=== PATIENT | female | born 1995 | race Two or more races ===

== ENCOUNTER 2020-09-14 15:25 | Inpatient (IN) | payer MEDICAID, OTHER ==
[~2020-09-14] VITALS: Ht 157.5 cm; Wt 96.6 kg
[2020-09-14 16:45] LABS: Urine Bacteria NONE SEEN /hpf (None Seen); Urine Blood TRACE /uL (Negative); Urine Specific Gravity 1.022 (1.001-1.035); Urine WBC 1 /hpf (0 - 5)
[2020-09-14 19:14] LABS: Basophils # (auto) 0.1 10 ^3/uL (0-0.2); Basophils % (auto) 0.3 % (0.0-2.0); Eosinophils # (auto) 0.3 10 ^3/uL (0-0.8); Eosinophils % (auto) 1.3 % (0.0-7.0); Hematocrit 45.4 % (36.0-46.0); Lymphocytes # (auto) 4.4 10 ^3/uL (0.4-5.4); Lymphocytes % (auto) 21.4 % (10.0-50.0); Mean Corpuscular Hgb Conc. 32.9 g/dL (32.0-36.0); Mean Corpuscular Volume 85.2 fL (80.0-100.0); Monocytes # (auto) 1.3 10 ^3/uL (0-1.3); Monocytes % (auto) 6.1 % (0.0-12.0); Neutrophils # (auto) 14.6 10 ^3/uL (1.6-8.6); Neutrophils % (auto) 70.9 % (37.0-80.0); Nucleated Red Blood Cells % 0.1 %; Platelet Count (auto) 304 10^3/uL (140-450); Red Blood Cells 5.34 10^6/uL (4.0-5.20); Red Cell Distribution Width 14.6 % (11.8-14.3); White Blood Cell 20.7 10^3/uL (4.4-10.8)
[2020-09-14 19:32] LABS: BUN/Creatinine Ratio 12.1; Potassium 3.6 mmol/L (3.5-5.1)
[2020-09-14 19:34] LABS: Bilirubin, Total 0.7 mg/dL (0.2-1.0); Total Protein 8.2 g/dL (6.4-8.2)
[2020-09-14] MEDS ORDERED: SODIUM CHLORIDE 0.9% 1,000 ML IV ONE ×2 (20:45→21:15)
[2020-09-14] MEDS ORDERED: ONDANSETRON ODT 4 MG TAB PO ONE (20:45)
[2020-09-14] MEDS ORDERED: ACETAMINOPHEN/CODEINE#3 (300/30mg) TAB PO ONE (20:45)
[2020-09-14] MEDS ORDERED: metroNIDAZOLE 500MG/100ML 100 ML IV ONE (21:15)
[2020-09-14] MEDS ORDERED: cefTRIAXone 1GM/50ML D5W 50 ML IV ONE (21:15)
[2020-09-14] MEDS ORDERED: MORPHINE SULF INJ 2 MG/ML SYRINGE 1ML IV ONE (21:15)
[2020-09-14] MEDS ORDERED: MORPHINE SULFATE 4 MG/ML SYR/VIAL IV ONE (21:45)
[2020-09-14 21:52] LABS: INR 0.92 (0.9-1.15); Partial Thromboplastin Time 28.9 sec (23.0-31.2)
[2020-09-14] MEDS ORDERED: SODIUM CHLORIDE 0.9% 1,000 ML IV SCH (22:00)
[2020-09-15] VITALS (8 sets, daily range): BP systolic 111–149; BP diastolic 17–78
[2020-09-15] MEDS: metroNIDAZOLE 500MG/100ML 100 ML IV SCH ×4 (01:21→21:20)
--- NOTE | 2020-09-15 01:37 | NUR ---
MS admit from [facility] admitted to tele/MS. Patient oriented to Annie Ahumada RN primary RN, unit, room, bed, and unit policies regarding patient care and visiting hours. Patient weighed by bedscale and encouraged to call if they need something. All questions and concerns addressed, patient verbalized understanding. Fall and safety precautions in place. Call light within reach. Urine sample collected and walked to lab per MD order
[2020-09-15 02:15] LABS: Amphetamine Screen, Urine NEGATIVE (NEGATIVE); Barbiturate Scree,Urine NEGATIVE (NEGATIVE); Benzodiazephine Screen, Urine NEGATIVE (NEGATIVE); Cannabinoid Screen, Urine NEGATIVE (NEGATIVE); Cocaine Screen, Urine NEGATIVE (NEGATIVE); Opiate Scree,Urine POSITIVE (NEGATIVE); Phencyclidine Screen, Urine NEGATIVE (NEGATIVE)
[2020-09-15] MEDS ORDERED: METF-370 PO (02:20)
[2020-09-15] MEDS: MORPHINE SULF INJ 2 MG/ML SYRINGE 1ML IV PRN ×2 (04:31→20:08)
[2020-09-15] MEDS: PANTOPRAZOLE 40 MG/10 ML VIAL INJ IV SCH (08:07)
[2020-09-15] MEDS: ONDANSETRON HCL 4 MG/2 ML VIAL IV PRN ×2 (08:08→20:08)
[2020-09-15 08:37] LABS: Basophils # (auto) 0.1 10 ^3/uL (0-0.2); Basophils % (auto) 0.4 % (0.0-2.0); Eosinophils # (auto) 0.1 10 ^3/uL (0-0.8); Eosinophils % (auto) 0.7 % (0.0-7.0); Hematocrit 44.6 % (36.0-46.0); Hemoglobin 14.4 g/dL (12.2-16.2); Lymphocytes # (auto) 2.4 10 ^3/uL (0.4-5.4); Lymphocytes % (auto) 19.3 % (10.0-50.0); Mean Corpuscular Hemoglobin 27.5 pg (28.0-32.0); Mean Corpuscular Hgb Conc. 32.2 g/dL (32.0-36.0); Mean Corpuscular Volume 85.3 fL (80.0-100.0); Monocytes # (auto) 0.7 10 ^3/uL (0-1.3); Monocytes % (auto) 5.5 % (0.0-12.0); Neutrophils # (auto) 9.3 10 ^3/uL (1.6-8.6); Neutrophils % (auto) 74.1 % (37.0-80.0); Platelet Count (auto) 273 10^3/uL (140-450); Red Blood Cells 5.23 10^6/uL (4.0-5.20); Red Cell Distribution Width 14.5 % (11.8-14.3); White Blood Cell 12.6 10^3/uL (4.4-10.8)
[2020-09-15 08:52] LABS: Potassium 4.1 mmol/L (3.5-5.1)
[2020-09-15 09:02] LABS: Albumin 3.4 g/dL (3.4-5.0); BUN/Creatinine Ratio 9.1; Bilirubin, Total 1.3 mg/dL (0.2-1.0); Calcium 8.6 mg/dL (8.5-10.1); Total Protein 7.2 g/dL (6.4-8.2)
--- NOTE | 2020-09-15 10:09 | NUR ---
Dr Salmon bedside with patient discussing plan of care. Orders received and carried out.
[2020-09-15] MEDS ORDERED: DEXTROSE (50%) 50ML SYRG IV PRN (10:30)
--- NOTE | 2020-09-15 10:30 | NUR ---
Niya Felton swab walked to lab
--- NOTE | 2020-09-15 11:08 | NUR ---
Received call from Dr Kris May for consents to be printed for procedure.
--- NOTE | 2020-09-15 11:09 | NUR ---
Nutrition Consult Food and Drug interaction Pt is prescribed Metronidazole. Spoke to pt about the interaction between antibiotics and alcohol. Advised pt to avoid consumption of medication with alcohol intake if prescribed outside of hospital. Placed food and drug interaction sheet in pt discharge folder.
[2020-09-15] MEDS ORDERED: fentaNYL CITRATE 100 MCG/2 ML VL ONE (11:58)
[2020-09-15] MEDS ORDERED: MIDAZOLAM HCL 1MG/1ML-2 ML VIAL ONE (11:58)
[2020-09-15] MEDS ORDERED: MEPERIDINE HCL (25 MG/ML) 1ML VIAL ONE (11:58)
[2020-09-15] MEDS ORDERED: GLYCOPYRROLATE 0.2 MG/ML 1ML VIAL ONE (11:59)
[2020-09-15] MEDS ORDERED: ROCURONIUM 10MG/ML 10ML VIAL IV ONE (11:59)
[2020-09-15] MEDS ORDERED: SODIUM CHLORIDE LOCK 10 ML ONE (11:59)
[2020-09-15] MEDS ORDERED: NEOSTIGMINE 1 MG/ML INJ (10mg/10ML VIAL) ONE (11:59)
[2020-09-15] MEDS ORDERED: MEPERIDINE HCL (50 MG/ML) 1 ML VIAL ONE (11:59)
[2020-09-15] MEDS ORDERED: ONDANSETRON HCL 4 MG/2 ML VIAL ONE (11:59)
[2020-09-15] MEDS: InsuLIN REG 1unit/0.01ml Soln (100units/ml) SC SCH ×3 (12:00→23:43)
[2020-09-15] MEDS: SODIUM CHLORIDE 0.9% 1,000 ML IV SCH ×3 (12:01→23:43)
[2020-09-15] MEDS: ACCU-CHEK COMFORT CURVE STRIP VI SCH ×3 (12:02→23:43)
[2020-09-15] MEDS ORDERED: BUPIVACAINE 0.25% INJ 50ML VIAL ONE (13:30)
--- NOTE | 2020-09-15 13:35 | NUR ---
Patient off floor for procedure
[2020-09-15] MEDS ORDERED: cefTRIAXone 1GM/50ML D5W 50 ML IV ONE (13:36)
[2020-09-15] MEDS ORDERED: HYDROmorphone HCL 2 MG/ML VL IV ONE (16:03)
[2020-09-15] MEDS ORDERED: HYDROmorphone HCL 2 MG/ML VL ONE (16:03)
--- NOTE | 2020-09-15 16:22 | NUR ---
Patient back to room from procedure. Patient placed on 2L NC, 3 incisions clean/dry/intact with abdominal binder in place. VS: 98.5, 87, 14, 93% 126/77. No complaints of pain at this time. Will continue to monitor.
--- NOTE | 2020-09-15 19:30 | NUR ---
Opening Shift Note Assumed care of patient, awake and alert. No S/S of distress/SOB or pain. Insructed on POC and to callfor assist PRN, will continue to monitor for changes Q1hr and PRN. Fall and safety precautions in place. Call light within reach
[2020-09-15] MEDS ORDERED: cefTRIAXone 1GM/50ML D5W 50 ML IV SCH (21:00)
[2020-09-16] MEDS: ONDANSETRON HCL 4 MG/2 ML VIAL IV PRN (01:50)
[2020-09-16] MEDS: MORPHINE SULF INJ 2 MG/ML SYRINGE 1ML IV PRN ×2 (01:50→09:04)
[2020-09-16 05:00] VITALS: BP 120/72
[2020-09-16] MEDS: metroNIDAZOLE 500MG/100ML 100 ML IV SCH (05:34)
[2020-09-16] MEDS: InsuLIN REG 1unit/0.01ml Soln (100units/ml) SC SCH ×2 (06:00→11:38)
[2020-09-16] MEDS: ACCU-CHEK COMFORT CURVE STRIP VI SCH ×2 (06:01→12:00)
[2020-09-16] MEDS: SODIUM CHLORIDE 0.9% 1,000 ML IV SCH ×2 (06:05→10:38)
--- NOTE | 2020-09-16 07:30 | NUR ---
Opening Shift Note Assumed care of patient, AOx4. No S/S of distress/SOB or pain. Instructed on POC and to call for assist PRN, will continue to monitor for changes. Fall and safety precautions in place, call light within reach.
[2020-09-16 09:00] VITALS: BP 114/71
[2020-09-16] MEDS: PANTOPRAZOLE 40 MG/10 ML VIAL INJ IV SCH (09:04)
--- NOTE | 2020-09-16 09:40 | NUR ---
Doctor at bedside Dr. Salmon at bedside, updated on POC. New orders received will carry out.
[2020-09-16 11:45] VITALS: BP 114/71
[2020-09-16 13:00] VITALS: BP 116/73
--- NOTE | 2020-09-16 13:15 | NUR ---
Discharge instructions given as ordered. Encourage to follow up with PMD as instructed. All questions and concerns addressed. Patient verbalized understanding. Medication reconciliation form completed and copy given to patient. IV removed with catheter intact, pressure dressing applied. Patient taken to vehicle via wheelchair with all personal belongings, accompanied by staff. No distress noted at time of departure.
== END 2020-09-16 13:15 | disposition home or self-care (01) | DRG 233 ==
LOC: ER 15:25 → OVERFLOW 15:26 → CENTRAL 09-15 01:41
PROVIDERS: ADMIT Nurse Practitioner; ATTEND Internal Medicine
PROC: 0DTJ4ZZ Resection of Appendix, Percutaneous Endoscopic Approach (ICD-10-PCS; principal; 2020-09-15 13:59)
DX: K35.33 Acute appendicitis with perforation, localized peritonitis, and gangrene, with abscess (principal); E66.01 Morbid (severe) obesity due to excess calories; D72.829 Elevated white blood cell count, unspecified; Z68.39 Body mass index [BMI] 39.0-39.9, adult; E11.65 Type 2 diabetes mellitus with hyperglycemia; E28.2 Polycystic ovarian syndrome; R16.0 Hepatomegaly, not elsewhere classified; K76.0 Fatty (change of) liver, not elsewhere classified; Z90.49 Acquired absence of other specified parts of digestive tract; Z20.828 Contact with and (suspected) exposure to other viral communicable diseases; R74.01 Elevation of levels of liver transaminase levels
CPT/HCPCS: 36415; 71045; 74176; 80053; 80307; 81001; 81025; 82962; 83605; 84702; 85025; 85610; 85730; 86850; 86900; 86901; 87426; 93005; 96365; 96375; C9113; G0378; J0696; J2250; J2405; J3490; Q0162

== ENCOUNTER 2022-02-07 11:47 | Emergency (ER) | payer MEDICAID ==
[~2022-02-07] VITALS: Ht 157.5 cm; Wt 94.3 kg
[~2022-02-07 11:47] MED LIST: METF-370 PO
[2022-02-07 14:07] LABS: Basophils # (auto) 0 10 ^3/uL (0-0.2); Basophils % (auto) 0.2 % (0.0-2.0); Eosinophils # (auto) 0 10 ^3/uL (0-0.8); Hematocrit 38.6 % (36.0-46.0); Hemoglobin 12.2 g/dL (12.2-16.2); Lymphocytes # (auto) 1.5 10 ^3/uL (0.4-5.4); Lymphocytes % (auto) 11.6 % (10.0-50.0); Mean Corpuscular Hemoglobin 22.2 pg (28.0-32.0); Mean Corpuscular Hgb Conc. 31.7 g/dL (32.0-36.0); Monocytes # (auto) 0.4 10 ^3/uL (0-1.3); Monocytes % (auto) 3.4 % (0.0-12.0); Neutrophils # (auto) 10.8 10 ^3/uL (1.6-8.6); Neutrophils % (auto) 84.8 % (37.0-80.0); Nucleated Red Blood Cells % 0.1 %; Red Blood Cells 5.51 10^6/uL (4.0-5.20); Red Cell Distribution Width 16.7 % (11.8-14.3); White Blood Cell 12.7 10^3/uL (4.4-10.8)
[2022-02-07 14:41] LABS: Albumin 3.9 g/dL (3.4-5.0); Calcium 8.9 mg/dL (8.5-10.1); Potassium 4.2 mmol/L (3.5-5.1)
[2022-02-07 14:45] LABS: BUN/Creatinine Ratio 11.4; Bilirubin, Total 0.6 mg/dL (0.2-1.0); Total Protein 8.4 g/dL (6.4-8.2)
[2022-02-07 17:02] LABS: Urine Bacteria MOD /hpf (None Seen); Urine Blood 1+ /uL (Negative); Urine Mucus FEW (None Seen); Urine Specific Gravity 1.024 (1.001-1.035); Urine WBC 8 /hpf (0 - 5)
[2022-02-07] MEDS ORDERED: LEVO500T31 PO (18:35)
[2022-02-07 18:36] VITALS: BP 138/81
[2022-02-07] MEDS: levoFLOXacin 500 MG TAB PO ONE (19:00)
== END 2022-02-07 19:29 | disposition home or self-care (01) ==
LOC: ER 11:47
DX: I88.0 Nonspecific mesenteric lymphadenitis (principal); N39.0 Urinary tract infection, site not specified; E11.9 Type 2 diabetes mellitus without complications; Z90.49 Acquired absence of other specified parts of digestive tract
CPT/HCPCS: 36415; 74176; 80053; 81001; 84702; 85025

== ENCOUNTER 2025-10-09 08:36 | Emergency (ER) | payer MEDICAID ==
[~2025-10-09] VITALS: Ht 157.5 cm; Wt 89.3 kg
[~2025-10-09 08:36] MED LIST changes: +LEVO500T31 PO
--- NOTE | 2025-10-09 09:15 | ED.PDOC ---
General HPI Comments 30 year-old female presents to the ED with a chief complaint of UTI symptoms for X1 week. Patient reports having a hormonal IUD in place as of 08/31/25. Patient states she went to Urgent Care on 10/01/25 for symptoms, and was sent home with antibiotics to treat the UTI. Patient states the antibiotics did not help, so she went to [facility]. Patient reports being admitted to [facility], discharged home 10/06/25 with Tylenol, Baclofen, and Ibuprofen, with no relief. Patient states she was told that the UTI is possibly caused by the IUD in place. Patient presents to the ED today with worsening symptoms, including bilateral flank pain and lower back pain. Patient has no further complaints at this time and otherwise denies symptoms of weakness, fatigue, fever, chills, or hematuria. Chief Complaint: Pelvic Pain Time Seen by MD: 08:54 Primary Care Provider: Favian FUENTES Reviewed notes: Medications, Allergies Allergies: Coded Allergies: Acetaminophen (Verified Allergy, Unknown, 10/09/25) Hydrocodone (Verified Allergy, Unknown, 10/09/25) Metformin (Verified Allergy, Unknown, 10/09/25) Morphine (Verified Allergy, Unknown, 10/09/25) Tramadol (Verified Allergy, Unknown, 10/09/25) Home Meds Active Scripts Levofloxacin (Levaquin) 500 Mg Tab, 500 MG PO BID for 7 Days, #14 TAB Prov:FERDINAND LAM MD 02/07/22 Reported Medications Metformin Hydrochloride (Metformin Hcl) 500 Mg Tab, 500 MG PO IBID for 30 Days, MG 09/15/20 Information Source: Patient Mode of Arrival: Ambulatory Severity: Moderate Timing: Days Duration: Since onset History of: UTI Location: (R) Flank, (L)Flank associated signs and symptoms: Flank Pain, Back Pain, Dysuria Past Medical History PAST MEDICAL HISTORY: DM Past Medical History (Other): PCOS, R Lung nodule Surgical History: Appendectomy, Cholecystectomy Surgical History (Other): [employer] History: Other (IUD Insertion ) Family History Family History: Reviewed,noncontributory to illness Social History Smoker: Non-Smoker Alcohol: Denies ETOH Use Drugs: Denies Drug Use Lives In: Home Constitutional: denies: chills, diaphoresis, fatigue, fever, malaise, sweats, weakness, others EENTM: denies: blurred vision, double vision, ear bleeding, ear discharge, ear drainage, ear pain, ear ringing, eye pain, eye redness, hearing loss, mouth pain, mouth swelling, nasal discharge, nose bleeding, nose congestion, nose pain, photophobia, tearing, throat pain, throat swelling, voice changes, others Respiratory: denies: cough, hemoptysis, orthopnea, SOB at rest, shortness of breath, SOB with excertion, stridor, wheezing, others Cardiovascular: denies: chest pain, dizzy spells, diaphoresis, Dyspnea on exertion, edema, irregular heart beat, left arm pain, lightheadedness, palpitations, PND, syncope, others Gastrointestinal: denies: abdomen distended, abdominal pain, blood streaked bowels, constipated, diarrhea, dysphagia, difficulty swallowing, hematemesis, melena, nausea, poor appetite, poor fluid intake, rectal bleeding, rectal pain, vomiting, others Genitourinary: reports: dysuria, flank pain; denies: abnormal vagina bleeding, burning, dyspareunia, frequency, hematuria, incontinence, pain, , vagina discharge, urgency, others Neurological: denies: dizziness, fainting, headache, left sided numbness, left sided weakness, numbness, paresthesia, pre-existing deficit, right sided numbness, right sided weakness, seizure, speech problems, tingling, tremors, weakness, others Musculoskeletal: denies: back pain, gout, joint pain, joint swelling, muscle pain, muscle stiffness, neck pain, others Integumetry: denies: bruises, change in color, change in hair/nails, dryness, laceration, lesions, lumps, rash, wounds, others Allergic/Immunocompromised: denies: Difficulty Healing, Frequent Infections, Hives, Itching, others Hematologic/Lymphatic: denies: anemia, blood clots, easy bleeding, easy bruising, swollen glands, others Endocrine: denies: excessive hunger, excessive sweating, excessive thirst, excessive urination, flushing, intolerance to cold, intolerance to heat, unexplained weight gain, unexplained weight loss, others Psychiatric: denies: anxiety, bipolar disorder, depression, hopeless, panic disorder, schizophrenia, sleepless, suicidal, others All Other Systems: Reviewed and Negative Physical Exam General Appearance: Moderate Distress, Obese HEENT: Normal ENT Inspection, Pharynx Normal, TMs Normal Neck: Full Range of Motion, Non-Tender, Normal, Normal Inspection Respiratory: Chest Non-Tender, No Respiratory Distress, Normal Breath Sounds Cardiovascular: No Edema, No JVD, No Murmur, No Gallop, Regular Rate/Rhythm Breast Exam: Deferred Gastrointestinal: No Organomegaly, Non Tender, No Pulsatile Mass, Normal Bowel Sounds, Soft Genitalia: Deferred Pelvic: Deferred Rectal: Deferred Extremities: Normal capillary refill, Normal inspection, Normal range of motion, Non-tender, No pedal edema Musculoskeletal : Apperance: Normal Neurologic: Alert, No Motor Deficits, Normal Affect, Normal Mood, No Sensory Deficits Cerebellar Function: NOT DONE Reflexes: NOT DONE Skin: Dry, Normal Color, Warm Lymphatic: No Adenopathy Was a procedure done? Was a procedure done?: No Differential Diagnosis Kidney stone (Female): N/A Urinary Problem (Female): Urolithiasis, UTI X-Ray, Labs, Meds, VS Vital Signs Date Time Temp Pulse Resp B/P (MAP) Pulse Ox O2 Delivery O2 Flow Rate FiO2 10/09/25 08:41 98.2 96 14 132/95 98 98.2 Lab Test 10/09/25 09:34 10/09/25 08:58 Range/Units White Blood Count 5.0 4.4-10.8 10^3/uL Red Blood Count 5.38 H 4.0-5.20 10^6/uL Hemoglobin 14.1 12.2-16.2 g/dL Hematocrit 42.4 36.0-46.0 % Mean Corpuscular Volume 78.9 L 80.0-100.0 fL Mean Corpuscular Hemoglobin 26.2 L 28.0-32.0 pg Mean Corpuscular Hemoglobin Concent 33.2 32.0-36.0 g/dL Red Cell Distribution Width 16.3 H 11.8-14.3 % Platelet Count 201 140-450 10^3/uL Mean Platelet Volume 8.0 6.9-10.8 fL Neutrophils (%) (Auto) 61.1 37.0-80.0 % Lymphocytes (%) (Auto) 23.1 10.0-50.0 % Monocytes (%) (Auto) 9.1 0.0-12.0 % Eosinophils (%) (Auto) 6.2 0.0-7.0 % Basophils (%) (Auto) 0.5 0.0-2.0 % Neutrophils # (Auto) 3.0 1.6-8.6 10 ^3/uL Lymphocytes # (Auto) 1.2 0.4-5.4 10 ^3/uL Monocytes # (Auto) 0.5 0-1.3 10 ^3/uL Eosinophils # (Auto) 0.3 0-0.8 10 ^3/uL Basophils # (Auto) 0 0-0.2 10 ^3/uL Nucleated Red Blood Cells 0.2 % Sodium Level 138 136-145 mmol/L Potassium Level 4.1 3.5-5.1 mmol/L Chloride Level 102 98-107 mmol/L Carbon Dioxide Level 23 20-31 mmol/L Anion Gap 13 5-15 Blood Urea Nitrogen < 5 L 9-23 mg/dL Creatinine 0.74 0.550-1.02 mg/dL Glomerular Filtration Rate Calc 112 >90 mL/min BUN/Creatinine Ratio 6.8 L 10.0-20.0 Serum Glucose 265 H 74-106 mg/dL Calcium Level 9.4 8.7-10.4 mg/dL Urine Color Colorless Yellow Urine Clarity Clear Clear Urine pH 7.0 5.0-9.0 Urine Specific [place] 1.017 1.001-1.035 Urine Protein Negative Negative Urine Ketones 1+ H Negative Urine Blood Trace H Negative /uL Urine Nitrite Negative Negative Urine Bilirubin Negative Negative Urine Urobilinogen Normal Negative mg/dL Urine Leukocyte Esterase Negative Negative /uL Urine RBC 3 0 - 4 /hpf Urine Microscopic WBC < 1 0-5 /HPF Urine Squamous Epithelial Cells Few <5 /hpf Urine Bacteria Few H None Seen /hpf Urine Glucose 4+ H Normal mg/dL Urine Test Negative Negative Time of 1ST Reevaluation: 12:05 Reevaluation 1ST: Unchanged Patient Education/Counseling: Diagnosis, Treatment Family Education/Counseling: No Family Present SEPSIS Sepsis Screen Date sepsis recognized/suspect: Oct 09, 2025 Time Sepsis recognized/suspect: 843 Recent Procedure: No On Antibiotic Therapy: No Respiratory Rate >20: No Heart Rate >90: Yes Temp<36 C (96.8 F) or >38.3 C: No SBP <90 or MAP <65 mmHG: No New Acute Mental Status Change: No Is the patient on CPAP, BIPAP,: No Physician Orders Pelvic (10/09/25 10:20) Transvaginal Us Non Ob (10/09/25 11:27) Vital Signs Date Time Temp Pulse Resp B/P (MAP) Pulse Ox O2 Delivery O2 Flow Rate FiO2 10/09/25 08:41 98.2 96 14 132/95 98 98.2 Laboratory Tests Test 10/09/25 09:34 White Blood Count 5.0 10^3/uL (4.4-10.8) Departure 1 Departure Time of Disposition: 12:01 (Patient's workup appears benign. Patient has a follow up with the her OB tomorrow and would like to go. We will discharge patient home) Impression: Primary Impression: Pelvic pain Disposition: 01 HOME / SELF CARE / HOMELESS Condition: Stable Additional Instructions: Your workup today was benign. Your IUD appears to be in a good place on your ultrasound today. You should follow up with your OB tomorrow. Discharged With: Self Critical Care Note Critical Care Time?: No Stability Stability form required: No Heart Score Heart Score: Heart Score Response (Comments) Value History N/A 0 EKG N/A 0 Age N/A 0 Risk Factors N/A 0 Troponin N/A 0 Total 0 I personally scribed for ALMA ROSADO MD ([email or web address]) on 10/09/25 at 09:15. Marcy ctronically submitted by Merced Magaña ([facility]). ALMA ROSADO MD Oct 09, 2025 09:15
[2025-10-09 09:23] LABS: Urine Protein, UAD Negative (Negative)
[2025-10-09 09:58] LABS: Chloride 102 mmol/L (98-107); Potassium 4.1 mmol/L (3.5-5.1); Sodium 138 mmol/L (136-145)
[2025-10-09 09:59] LABS: Anion Gap 13 (5-15); Calcium 9.4 mg/dL (8.7-10.4); Carbon Dioxide 23 mmol/L (20-31); Hematocrit 42.4 % (36.0-46.0); Hemoglobin 14.1 g/dL (12.2-16.2); Mean Corpuscular Hemoglobin 26.2 pg (28.0-32.0); Mean Corpuscular Volume 78.9 fL (80.0-100.0); Nucleated Red Blood Cells % 0.2 %
[2025-10-09 10:06] LABS: BUN/Creatinine Ratio 6.8 (10.0-20.0); Blood Urea Nitrogen < 5 mg/dL (9-23); Glucose 265 mg/dL (74-106)
--- NOTE | 2025-10-09 11:56 | DVH ---
EXAM DESCRIPTION: TRANSABDOMINAL AND TRANSVAGINAL PELVIC ULTRASOUND CLINICAL HISTORY: pelvic pain COMPARISON: CT ABD PELVIS WO CONTRAST on DOS: 02/07/22 TECHNIQUE: Transabdominal and transvaginal ultrasound examination of the pelvis was performed. LMP: 08/24/25 FINDINGS: Uterus: 8.0 x 4.5 X 6.2 Cm. No uterine masses. Endometrial echo complex: 0.7 cm. IUD in the endometrial canal. Right ovary: 3.6 X 2.8 X 3.0 Cm. Right ovarian corpus luteum cyst. Normal Doppler flow in the right ovary. The left ovary was not visualized Intrapelvic free fluid: None. IMPRESSION: 1. Unremarkable uterus and right ovary. 2. The left ovary was not visualized 3. IUD in place.
[2025-10-09 12:48] VITALS: BP 128/84; PULSE 85; RESP 16; TEMP 98.5; O2SAT 99
== END 2025-10-09 13:08 | disposition home or self-care (01) ==
LOC: ER 08:36
DX: R10.20 Pelvic and perineal pain unspecified side (principal); E11.9 Type 2 diabetes mellitus without complications; Z90.49 Acquired absence of other specified parts of digestive tract; Z88.5 Allergy status to narcotic agent; Z79.899 Other long term (current) drug therapy
CPT/HCPCS: 36415; 76830; 76856; 80048; 81001; 81025; 85025